=== PATIENT | female | born 1990 | race African-American/Black ===

== ENCOUNTER 2024-05-23 18:05 | Emergency (ER) | payer MEDICAID ==
[~2024-05-23] VITALS: Ht 165.1 cm; Wt 73.0 kg
[2024-05-23 18:09] VITALS: TEMP 98.3; O2SAT 98
[2024-05-23 20:33] LABS: CHLORIDE 104 mEq/L (98-107); POTASSIUM 3.2 mEq/L (3.5-5.1); SODIUM 139 mEq/L (136-145)
[2024-05-23 20:34] LABS: CALCIUM 8.9 mg/dL (8.7-10.4); CARBON DIOXIDE 27 mEq/L (21-32); HEMATOCRIT. 37.5 % (36.0-48.0); HEMOGLOBIN. 12.2 g/dL (12.0-16.0); MEAN CORPUSCULAR HEMOGLOBIN 28.6 pg (28.0-32.0); MEAN CORPUSCULAR HGB CONC 32.5 g/dL (31.0-37.0); MEAN PLATELET VOLUME 9.7 fl (7.4-10.4); PLATELET 236 x1000/uL (130-400); RED BLOOD CELL COUNT 4.27 mill/uL (4.2-5.4); WHITE BLOOD COUNT 23.4 x1000/uL (4.5-11.0)
[2024-05-23 20:36] LABS: DIFFERENTIAL COMMENT 1
[2024-05-23 20:39] LABS: CREATININE 0.6 mg/dL (0.6-1.0); GLUCOSE 132 mg/dL (70-105); UREA NITROGEN BLOOD 7 mg/dL (9-23)
[2024-05-23 20:54] LABS: HCG SCREEN NEGATIVE
[2024-05-23] MEDS: KETOROLAC 30MG/ML VIAL IV STA (21:00)
[2024-05-23 21:56] VITALS: BP 142/84; PULSE 86; RESP 18
[2024-05-23] MEDS: ONDANSETRON HCL 4MG/2ML INJ IV STA (21:56)
[2024-05-23] MEDS: MORPHINE SULFATE 4 MG/ML INJ (FOR IV/IM USE) IV STA (21:56)
[2024-05-23] MEDS ORDERED: LIDOCAINE HCL/PF 1% 10 MG/ML 5ML VIAL INFIL ONE (22:00)
[2024-05-23 22:33] LABS: PLATELET ESTIMATE NORMAL
[2024-05-23] MEDS ORDERED: IOHEXOL-300 100 ML BOTTLE ONE (23:20)
[2024-05-23] MEDS ORDERED: POTASSIUM CHLORIDE 20MEQ TABLET SR PO ONE (23:30)
[2024-05-23] MEDS ORDERED: HYDR-4001 MT (23:32)
[2024-05-23] MEDS ORDERED: IBUP-2029 MT (23:32)
[2024-05-24] MEDS: POTASSIUM CHLORIDE 20MEQ TABLET SR PO NR (01:46)
== END 2024-05-24 01:59 | disposition home or self-care (01) ==
LOC: ER 18:05
DX: S52.501A Unspecified fracture of the lower end of right radius, initial encounter for closed fracture (principal); S30.1XXA Contusion of abdominal wall, initial encounter; S20.219A Contusion of unspecified front wall of thorax, initial encounter; R41.0 Disorientation, unspecified; V49.49XA Driver injured in collision with other motor vehicles in traffic accident, initial encounter; Y93.89 Activity, other specified; Y92.89 Other specified places as the place of occurrence of the external cause; Y99.8 Other external cause status
CPT/HCPCS: 99285; 70450; 24650; 96374; 71045; 96375; 80048; 81025; 84703; 85025; 36415; 73110; 73130; 71260; 72125; 74177; 99152; Q9967; J1885; J3490; J2405; J2270